=== PATIENT | female | born 1955 | race Two or more races ===

== ENCOUNTER 2022-08-26 16:00 | Emergency (ER) | payer SELFPAY ==
[~2022-08-26] VITALS: Ht 147.3 cm; Wt 45.0 kg
[2022-08-26] MEDS ORDERED: IOHEXOL 350 MG/ML 100 ML VIAL ONE (16:25)
[2022-08-26] MEDS ORDERED: SODIUM CHLORIDE 0.9% 100 ML ONE (16:25)
[2022-08-26 16:41] LABS: CALCIUM, TOTAL 9.3 mg/dL (8.8-10.5); CREATININE 1.11 mg/dL (0.60-1.30); POTASSIUM 3.7 mmol/L (3.5-5.1)
[2022-08-26 16:44] LABS: PROTHROMBIN TIME 10.7 SEC (9.4-11.6)
[2022-08-26] MEDS ORDERED: LABETALOL HCL 5 MG/ML 20 ML VIAL IVP ONE (16:45)
[2022-08-26 16:47] LABS: ALBUMIN 4.1 g/dL (3.4-5.0); BILIRUBIN,TOTAL 0.4 mg/dL (0.1-1.0)
[2022-08-26 16:54] LABS: BASOPHILS % (AUTO) 0.5 % (0.0-2.0); HEMATOCRIT 37.6 % (36-46); HEMOGLOBIN 12.6 g/dL (12.0-16.0); LYMPHOCYTES # (AUTO) 2.9 K/uL (1.0-4.8); LYMPHOCYTES % (AUTO) 27.9 % (22.0-44.0); MEAN CORPUSCULAR HEMOGLOBIN 30.2 pg (26.0-34.0); MEAN CORPUSCULAR HGB CONC 33.5 G/dL (31.0-37.0); MEAN CORPUSCULAR VOLUME 90 fL (80-100); MONOCYTES # (AUTO) 0.8 K/uL (0.1-1.0); MONOCYTES % (AUTO) 7.4 % (2.0-9.0); NEUTROPHILS # (AUTO) 6.7 K/uL (1.8-7.7); NEUTROPHILS % (AUTO) 63.2 % (40.0-70.0); PLATELET COUNT (AUTO) 242 K/uL (150-450); RED BLOOD CELL COUNT(AUTO) 4.17 MIL/uL (4.00-5.20); RED CELL DISTRIBUTION WIDTH 13.2 % (11.5-14.5)
[2022-08-26] MEDS ORDERED: VALA500T PO (18:35)
[2022-08-26] MEDS ORDERED: METH4TAB3 PO (18:37)
[2022-08-26 18:45] VITALS: BP 183/90
== END 2022-08-26 18:54 | disposition home or self-care (01) ==
LOC: EMS 16:02
DX: I10 Essential (primary) hypertension (principal); G51.0 Bell's palsy
CPT/HCPCS: 99285; 70496; 96374; 71045; 80053; 84484; 85025; 85610; 85730; 86850; 86900; 86901; 36415; 70498; 82948; 93005; 70450; J3490; Q9967; J7050